=== PATIENT | female | born 1955 | race Caucasian/White ===

== ENCOUNTER → 2024-02-09 04:00 | Outpatient (REF) | payer MEDICARE, SELFPAY | LOC: DHSLP 04:00 | PROVIDERS: ATTENDING PHYSICIAN Internal Medicine Cardiovascular Disease; FAMILY PHYSICIAN Family Medicine | DX: G47.30 Sleep apnea, unspecified (principal); R06.83 Snoring | CPT/HCPCS: 95800 ==